=== PATIENT | female | born 1965 | race Caucasian/White ===

== ENCOUNTER 2019-11-10 11:30 | Emergency (ER) | payer OTHER ==
[2019-11-10 11:42] VITALS: BP 187/70; PULSE 69; TEMP 97.8; BMI 66.5
[2019-11-10] MEDS ORDERED: SODIUM CHLORIDE 1,000 ML IV STA (12:10)
[2019-11-10] MEDS ORDERED: FAMOTIDINE 20 MG/50 ML IVPB 20 MG/50 ML MG IVPB ONE ×2 (12:10→13:33)
[2019-11-10] MEDS ORDERED: MAG HYDROX/AL HYDROX/SIMETH 30 ML UNIT-DOSE CUP PO ONE (12:10)
[2019-11-10] MEDS ORDERED: ONDANSETRON 4 MG/2 ML VIAL IVPUSH ONE (12:10)
[2019-11-10] MEDS ORDERED: ACETAMINOPHEN 1000 MG/100 ML VIAL (NON FORMULARY) IVPB ONE (12:48)
--- NOTE | 2019-11-10 13:06 | PDOC ---
History of Present Illness - General Chief Complaint: Vomiting/Diarrhea Stated Complaint: VOMITING/DIARRHEA Time Seen by Provider: 11/10/19 12:23 - History of Present Illness Initial Comments: 54 YOF h/o cholecystectomy presenting with nausea, vomiting, and diarrhea since 3 days. Patient had diarrhea for last 3 days and since this AM has been nauseas with vomiting. Vomiting continuously since onset, now dry heaving, unable to t olerate PO. Also complains of 4/10 headache. Denies CP, SOB, fever, chills, recent travel or sick contacts. Constitutional: No Weight Change, No Fever, No Chills, No Night Sweats, No Fatigue, No Malaise ENT/Mouth: No Hearing Changes, No Ear Pain, No Nasal Congestion, No Sinus Pain, No Hoarseness, No sore throat, No Rhinorrhea, No Swallowing Difficulty Eyes: No Eye Pain, No Swelling, No Redness, No Foreign Body, No Discharge, No Vision Changes Cardiovascular: No Chest Pain, No SOB, No PND, No Dyspnea on Exertion, No Orthopnea, No Claudication, No Edema, No Palpitations Respiratory: No Cough, No Sputum, No Wheezing, No Smoke Exposure, No Dyspnea Gastrointestinal: + Nausea, + Vomiting, + Diarrhea, No Constipation, No Pain, No Heartburn, No Anorexia, No Dysphagia, No Hematochezia, No Melena, No Flatulence, No Jaundice Genitourinary: No Dysmenorrhea, No DUB, No Dyspareunia, No Dysuria, No Urinary Frequency, No Hematuria, No Urinary Incontinence, No Urgency, No Flank Pain, No Urinary Flow Changes, No Hesitancy Musculoskeletal: No Arthralgias, No Myalgias, No Joint Swelling, No Joint Stiffness, No Back Pain, No Neck Pain, No Injury History Skin: No Skin Lesions, No Pruritis, No Hair Changes, No Breast/Skin Changes, No Nipple Discharge Neuro: No Weakness, No Numbness, No Paresthesias, No Loss of Consciousness, No Syncope, No Dizziness, No Headache, No Coordination Changes, No Recent Falls Psych: No Anxiety/Panic, No Depression, No Insomnia, No Personality Changes, No Delusions, No Rumination, No SI/HI/AH/VH, No Social Issues, No Memory Changes, No Violence/Abuse Hx., No Eating Concerns Heme/Lymph: No Bruising, No Bleeding, No Transfusions History, No Lymphadenopat hy Endocrine: No Polyuria, No Polydipsia, No Temperature Intolerance Past History - Medical History Allergies/Adverse Reactions: Allergies Allergy/AdvReac Type Severity Reaction Status Date / Time Sulfa (Sulfonamide AdvReac Intermediate Vomiting Verified 11/10/19 11:36 Antibiotics) Home Medications: Ambulatory Orders Ondansetron [Zofran *Odt*] 4 mg SL TID #21 od.tablet 11/10/19 COPD: No - Reproductive History Is Patient Now?: No - Psycho-Social/Smoking History Smoking History: Never smoked Have you smoked in the past 12 months: No - Substance Abuse Hx (Audit-C & DAST Scrn) How often the patient has a drink containing alcohol: Never Score: In Men: 4 or > Positive; In Women: 3 or > Positive: 0 Screen Result (Pos requires Nsg. Audit-10AR): Negative In the last yr the pt used illegal drug/Rx for NonMed reason: No Score: Yes response is considered Positive: 0 Screen Result (Positive result requires Nsg. DAST-10): Negative *Physical Exam - Vital Signs Last Vital Signs Temp Pulse Resp BP Pulse Ox 97.8 F 69 18 187/70 H 100 11/10/19 11:36 11/10/19 11:36 11/10/19 11:36 11/10/19 11:36 11/10/19 11:36 - Physical Exam General Appearance: Yes: Appropriately Dressed, Mild Distress HEENT: positive: EOMI, REIC, Normal ENT Inspection, Normal Voice, Symmetrical, TMs Normal, Pharynx Normal Neck: positive: Trachea midline, Normal Thyroid Respiratory/Chest: positive: Lungs Clear, Normal Breath Sounds Cardiovascular: positive: Regular Rhythm, Regular Rate, S1, S2 Gastrointestinal/Abdominal: positive: Tender, Tenderness Musculoskeletal: positive: Normal Inspection Extremity: positive: Normal Capillary Refill, Normal Inspection, Normal Range of Motion Integumentary: positive: Normal Color, Dry, Warm Neurologic: positive: flatwork feeder II-XII NML intact, Fully Oriented, Alert, Normal Mood/Affect, Normal Response, Motor Strength 5/5 ED Treatment Course - LABORATORY CBC & Chemistry Diagram: 11/10/19 13:30 11/10/19 13:30 Medical Decision Making - Medical Decision Making 54 YOF presents with n/v/d since 3 days - BP elevated to 180s, baseline 110s - exam remarkable for ttp in epigastrum - will do cbc, cmp, troponin, CXR, EKG, zofran, tylenol, pepcid and maalox 11/10/19 17:46 reassess: labs and imaging wnl, patient fells better and is interested in returning home, will dc to home with follow up Discharge - Discharge Information Problems reviewed: Yes Clinical Impression/Diagnosis: Acute vomiting Condition: Good Disposition: HOME - Additional Discharge Information Prescriptions: Ondansetron [Zofran *Odt*] 4 mg SL TID #21 od.tablet - Follow up/Referral Referrals: [facility] [place] [Provider Group] - Patient Discharge Instructions Patient Printed Discharge Instructions: DI for Vomiting -- Adult Additional Instructions: No solid food over the next 24 hours. Take Zofran as prescribed. Take over-the -counter Pepcid as directed on package. Drink small amounts frequently of either water Gatorade or soup. If no vomiting by tomorrow morning okay to proceed to a bland diet. Return to the emergency department for any fever severe worsening abdominal pain or for any concerns. Follow-up with the [facility] within 1 week to have your BP rechecked - Post Discharge Activity
[2019-11-10] MEDS ORDERED: ACETAMINOPHEN INJECTION 100 ML IVPB ONE (13:33)
[2019-11-10] MEDS ORDERED: MAG HYDROX/AL HYDROX/SIMETH 30 ML UNIT-DOSE CUP ONE (13:33)
--- NOTE | 2019-11-10 13:51 | PDOC ---
Documentation entered by Hardik Bagley SCRIBE, acting as scribe for Eamon Erwin MD. Eamon Erwin MD: This documentation has been prepared by the shirleyibeKevyn Alexis, SCRIBE, under my direction and personally reviewed by me in its entirety. I confirm that the documentation accurately reflects all work, treatment, procedures, and medical decision making performed by me. Attending Attestation - Resident Resident Name: Andrew Fuchs - ED Attending Attestation I have performed the following: I have examined & evaluated the patient, The case was reviewed & discussed with the resident, I agree w/resident's findings & plan, Exceptions are as noted - HPI HPI: 11/10/19 13:11 The patient is a 54 year old female with no significant past medical history who presents to the emergency department for evaluation of nausea and vomiting that began today. The patient reports an associated headache and two days of diarrhea. She denies a history of similar symptoms. Denies sick contacts and travel. The patient denies chest/abdominal/back pain, cough, and shortness of breath. Denies fever, chills, or any symptoms. Denies any other symptoms. Allergies: sulfa Surgical Hx: cholecystectomy - Physicial Exam PE: 11/10/19 12:50 Vitals: Triage vital signs reviewed General Appearance: No acute distress, well nourished, well developed Head: Atraumatic Cardiac: Regular rate and rhythm, no murmurs, no rubs, no gallops Lungs: Clear to auscultation bilateral, good air movement bilaterally Abdomen: Soft, nondistended, normal bowel sounds, nontender to palpation Extremities: Full range of motion to all extremities, no cyanosis, clubbing, or edema Skin: Warm and dry, no rashes or lesions, no rash, no petechiae Psych: Normal mood, normal affect - Medical Decision Making 11/10/19 15:33 54 years old with diarrhea and now nausea and vomiting mild left upper quadrant abdominal pain on examination History examination most consistent with viral illness will check COVID swab, hydrate, labs, GI cocktail observe and reassess Reevaluation patient feels much better after GI cocktail tolerating fluids We will follow-up with PCP this week Findings, need for follow-up and strict return instructions discussed with patient. Heart Score/ECG Review - ECG Impressions Comment:: 11/10/19 15:34 EKG performed at 1227 demonstrates normal sinus rhythm no ST elevations no T wave inversions Interpreted by me. Discharge - Discharge Information Problems reviewed: Yes Clinical Impression/Diagnosis: Acute vomiting Condition: Good Disposition: HOME - Admission No - Additional Discharge Information Prescriptions: Ondansetron [Zofran *Odt*] 4 mg SL TID #21 od.tablet - Follow up/Referral Referrals: [facility] [place] [facility] [place] [Provider Group] - Patient Discharge Instructions Patient Printed Discharge Instructions: DI for Vomiting -- Adult Additional Instructions: No solid food over the next 24 hours. Take Zofran as prescribed. Take [id number] Pepcid as directed on package. Drink small amounts frequently of either water Gatorade or soup. If no vomiting by tomorrow morning okay to proceed to a bland diet. Return to the emergency department for any fever severe worsening abdominal pain or for any concerns. Follow-up with the [facility] clinic within 1 week to have your BP rechecked - Post Discharge Activity
[2019-11-10 14:49] LABS: BASO % 0.6 % (0-2.0); HEMOGLOBIN 14.1 GM/dL (10.7-15.3); LYMPH % 11.9 % (8-40); MCHC 33.5 g/dl (32.0-36.0); MEAN CELL VOLUME 86.7 fl (80-96); MONO % 4.1 % (3.8-10.2); NEUT % 82.4 % (42.8-82.8); PLATELET COUNT 316 K/MM3 (134-434); RBC 4.84 M/mm3 (3.60-5.2)
[2019-11-10 16:11] LABS: ALBUMIN 3.7 g/dl (3.4-5.0); ALK PHOS 118 U/L (45-117); ANION GAP 5 MMOL/L (8-16); BILIRUBIN,TOTAL 0.4 mg/dL (0.2-1); BLOOD UREA NITROGEN 19.1 mg/dL (7-18); CALCIUM 9.7 mg/dL (8.5-10.1); CHLORIDE 104 mmol/L (98-107); CO2 28 mmol/L (21-32); GLUCOSE,RANDOM 98 mg/dL (74-106); LIPASE 108 U/L (73-393); MAGNESIUM 2.3 mg/dL (1.8-2.4); POTASSIUM 4.7 mmol/L (3.5-5.1); SGOT/AST 23 U/L (15-37); SGPT/ALT 26 U/L (13-61); SODIUM 138 mmol/L (136-145); TOT PROT 7.7 g/dl (6.4-8.2)
--- NOTE | 2019-11-10 16:54 | EKG ---
Test Reason : Blood Pressure : / mmHG Vent. Rate : 060 BPM Atrial Rate : 060 BPM P-R Int : 142 ms QRS Dur : 092 ms QT Int : 414 ms P-R-T Axes : 041 009 075 degrees QTc Int : 414 ms NORMAL SINUS RHYTHM NORMAL ECG NO PREVIOUS ECGS AVAILABLE Confirmed by NELI SHEETS MD ([id number]) on 11/10/2019 4:54:08 PM Referred By: Confirmed By:NELI SHEETS MD
== END 2019-11-10 17:42 | disposition home or self-care (01) ==
LOC: JER 11:30
PROC: 3E0333Z Introduction of Anti-inflammatory into Peripheral Vein, Percutaneous Approach (ICD-10-PCS; principal; 2019-11-10)
PROC: 3E033GC Introduction of Other Therapeutic Substance into Peripheral Vein, Percutaneous Approach (ICD-10-PCS; 2019-11-10)
PROC: 3E0337Z Introduction of Electrolytic and Water Balance Substance into Peripheral Vein, Percutaneous Approach (ICD-10-PCS; 2019-11-10)
DX: R11.0 Nausea (principal)
CPT/HCPCS: 36415; 80053; 83690; 83735; 84484; 84703; 85025; 93005; 93010; 99285-25; C9803; J0131; U0003